=== PATIENT | female | born 1945 | race Caucasian/White ===

== ENCOUNTER → 2024-03-18 15:18 | Outpatient (REF) | payer OTHER, SELFPAY | LOC: WDC 15:18 | PROVIDERS: ATTENDING PHYSICIAN Family Medicine | DX: Z12.31 Encounter for screening mammogram for malignant neoplasm of breast (principal) | CPT/HCPCS: 77063; 77067 ==

== ENCOUNTER → 2024-08-24 12:00 | Outpatient (REF) | payer OTHER, SELFPAY | LOC: RAD 12:00 | PROVIDERS: ATTENDING PHYSICIAN Student in an Organized Health Care Education/Training Program; FAMILY PHYSICIAN Family Medicine | DX: E55.9 Vitamin D deficiency, unspecified (principal); L40.50 Arthropathic psoriasis, unspecified; L40.9 Psoriasis, unspecified; M25.541 Pain in joints of right hand; M25.542 Pain in joints of left hand; M81.0 Age-related osteoporosis without current pathological fracture; S22.078A Other fracture of T9-T10 vertebra, initial encounter for closed fracture | CPT/HCPCS: 72040; 72072; 72110; 73120 ==

== ENCOUNTER → 2024-10-28 13:23 | Outpatient (REF) | payer MEDICARE, SELFPAY | LOC: RAD 13:23 | PROVIDERS: ATTENDING PHYSICIAN Student in an Organized Health Care Education/Training Program; FAMILY PHYSICIAN Family Medicine | DX: A15.9 Respiratory tuberculosis unspecified (principal); E07.9 Disorder of thyroid, unspecified; E55.9 Vitamin D deficiency, unspecified; G89.29 Other chronic pain; J93.83 Other pneumothorax; K75.9 Inflammatory liver disease, unspecified; L40.50 Arthropathic psoriasis, unspecified; L40.9 Psoriasis, unspecified; M15.4 Erosive (osteo)arthritis; M25.50 Pain in unspecified joint; M25.541 Pain in joints of right hand; M25.542 Pain in joints of left hand; M54.50 Low back pain, unspecified; M81.0 Age-related osteoporosis without current pathological fracture; M85.80 Other specified disorders of bone density and structure, unspecified site; N18.30 Chronic kidney disease, stage 3 unspecified; S22.078A Other fracture of T9-T10 vertebra, initial encounter for closed fracture; Z87.19 Personal history of other diseases of the digestive system | CPT/HCPCS: 77080 ==

== ENCOUNTER → 2024-11-17 10:46 | Outpatient (REF) | payer MEDICARE, SELFPAY | LOC: HWRAD 10:46 | PROVIDERS: ATTENDING PHYSICIAN Nurse Practitioner Family; FAMILY PHYSICIAN Family Medicine | DX: R91.1 Solitary pulmonary nodule (principal) | CPT/HCPCS: 71250 ==

== ENCOUNTER → 2025-03-26 11:05 | Outpatient (REF) | payer MEDICARE, SELFPAY | LOC: WDC 11:05 | PROVIDERS: ATTENDING PHYSICIAN Family Medicine | DX: Z12.31 Encounter for screening mammogram for malignant neoplasm of breast (principal) | CPT/HCPCS: 77063; 77067 ==

== ENCOUNTER 2025-04-21 06:19 | Day surgery (SDC) | payer MEDICARE, SELFPAY | END 2025-04-21 14:02 | disposition home or self-care (01) | LOC: GI 06:19 | PROVIDERS: ATTENDING PHYSICIAN Specialist | DX: Z12.11 Encounter for screening for malignant neoplasm of colon (principal); K55.20 Angiodysplasia of colon without hemorrhage; K52.9 Noninfective gastroenteritis and colitis, unspecified; K57.30 Diverticulosis of large intestine without perforation or abscess without bleeding; D12.8 Benign neoplasm of rectum; K63.5 Polyp of colon; Z86.0101 Personal history of adenomatous and serrated colon polyps | CPT/HCPCS: 45380; 88305 ==

== ENCOUNTER → 2025-04-22 15:02 | Outpatient (REF) | payer MEDICARE, SELFPAY | LOC: RAD 15:02 | PROVIDERS: ATTENDING PHYSICIAN Family Medicine | DX: M25.511 Pain in right shoulder (principal); G89.29 Other chronic pain; M62.838 Other muscle spasm | CPT/HCPCS: 73030 ==